=== PATIENT | female | born 1945 | race Caucasian/White ===

== ENCOUNTER → 2016-07-06 | Outpatient (CLI) | payer MEDICARE, BC ==
[~2016-07-06] MED LIST: AMIT50TA95 PO; ASPI-611 PO; LISI1TAB86 PO; METO-277 PO; METO-64 PO; MULT-833 PO; NITR12SP5 SL; SIMV20TA6 PO; UBID100C10 PO
[2016-07-06 16:29] LABS: BASOPHILS % (AUTO) 0.4 % (0-2); EOSINOPHILS # (AUTO) 0.2 T/MM3 (0-0.5); EOSINOPHILS % (AUTO) 3.3 % (0-4); HCT - HEMATOCRIT 41.6 % (36-46); HGB - HEMOGLOBIN 13.6 GM/DL (12-16); IMMATURE GRANULOCYTE # (AUTO) 0.01 T/MM3 (0.00-0.03); IMMATURE GRANULOCYTE % (AUTO) 0.1 % (0.0-0.5); LYMPHOCYTES # (AUTO) 2.2 T/MM3 (1-4.8); LYMPHOCYTES % (AUTO) 30.2 % (23-45); MEAN CORPUSCULAR HGB 29.1 UUG (26-34); MEAN CORPUSCULAR HGB CONC(MCHC 32.7 GM/DL (31-37); MEAN CORPUSCULAR VOLUME 89.1 UM3 (80-100); MEAN PLATELET VOLUME 9.7 UM3 (9.4-12.4); MONOCYTES # (AUTO) 0.6 T/MM3 (0-0.8); MONOCYTES % (AUTO) 7.5 % (0-9.0); NEUTROPHILS #(AUTO)-ABSOLUTE 4.3 T/MM3 (1.8-7.7); NEUTROPHILS % (AUTO) 58.5 % (33-66); RED BLOOD COUNT 4.67 M/MM3 (4.00-5.20); WBC - WHITE BLOOD COUNT 7.4 T/MM3 (4.5-11.0)
[2016-07-06 16:35] LABS: ALBUMIN 4.1 G/DL (3.5-5.0); ALBUMIN/GLOBULIN RATIO 1.1 RATIO (1.1-2.2); ALKALINE PHOSPHATASE 88 U/L (38-126); ALT (SGPT) 51 U/L (9-52); ANION GAP 9 MEQ/L (5-15); AST (SGOT) 56 U/L (14-36); BUN/CREATININE RATIO 19 RATIO (6-26); CHLORIDE 106 MEQ/L (98-107); CK - CPK 52 U/L (30-135); CO2 - CARBON DIOXIDE 31 MEQ/L (22-30); CREATININE 0.8 MG/DL (0.7-1.2); GLOMERULAR FILTRATION RATE 71; GLUCOSE 131 MG/DL (65-110); POTASSIUM 3.8 MEQ/L (3.6-5); SODIUM 146 MEQ/L (134-144); TOTAL PROTEIN 7.7 G/DL (6.3-8.2)
== END ==
LOC: LAB 16:00
PROVIDERS: ATTEND Internal Medicine
DX: R42 Dizziness and giddiness (principal); I25.10 Atherosclerotic heart disease of native coronary artery without angina pectoris
CPT/HCPCS: 36415; 80053; 82550; 83735; 84484; 85025

== ENCOUNTER → 2016-07-16 | Outpatient (CLI) | payer MEDICARE, BC | LOC: WC.BC 09:50 | DX: Z12.31 Encounter for screening mammogram for malignant neoplasm of breast (principal); N64.59 Other signs and symptoms in breast | CPT/HCPCS: 77063; G0202 ==